=== PATIENT | female | born 1960 | race Caucasian/White ===

== ENCOUNTER 2025-04-21 17:53 | Emergency (ER) | payer BC ==
[~2025-04-21 17:53] MED LIST: Iopamidol 300 61% 100 ML VIAL FS ONE
[2025-04-21 19:01] LABS: #Basophils Less than 0.03 10x3/uL (0.0-0.2); #Eosinophils Less than 0.03 10x3/uL (0.0-0.5); #Monocytes 0.45 10x3/uL (0.0-1.1); #Neutrophils 5.16 10x3/uL (1.5-8.4); %Basophils 0.1 % (0.0-2.0); %Eosinophils 0.1 % (0.0-6.0); %Lymphocytes 25.8 % (18.0-47.0); %Monocytes 5.9 % (0.0-10.0); %Neutrophils 68.0 % (40.0-75.0); Hematocrit 41.4 % (34.9-44.5); Hemoglobin 13.9 g/dL (12.0-15.5); Mean Corpuscular Hemoglobin 30.4 pg (27.0-33.0); Mean Corpuscular Volume 90.6 fL (81.6-98.3); Platelet Count 300 10x3/uL (150-450); Red Blood Cell (RBC) Count 4.57 10x6/uL (3.90-5.03); White Blood Cell (WBC) Count 7.60 10x3/uL (3.5-10.5)
[2025-04-21 19:14] LABS: ALT (SGPT) 15 U/L (Less than 34); AST (SGOT) 27 U/L (11-34); Albumin 4.2 g/dL (3.1-4.5); Alkaline Phosphatase 73 U/L (40-110); Anion Gap 16 mmol/L (10-20); BUN (Urea Nitrogen) 13 mg/dL (9.8-20.1); Bilirubin, Total 0.5 mg/dL (0.3-1.2); Calc. Creatinine Clearance 0 mL/min (70-130); Calcium 9.2 mg/dL (7.8-10.44); Carbon Dioxide 23 mmol/L (23-31); Chloride 106 mmol/L (98-107); Globulin 3.3 g/dL (2.4-3.5); Glucose 110 mg/dL (80-115); Lipase 14 U/L (8-78); Potassium 3.6 mmol/L (3.5-5.1); Sodium 141 mmol/L (136-145)
[2025-04-21] MEDS ORDERED: Ondansetron PF 4 MG/2 ML Vial ONE (19:20)
[2025-04-21] MEDS ORDERED: Ketorolac Tromethamine 30 MG (1 mL) VIAL ONE (19:20)
[2025-04-21] MEDS ORDERED: Metoclopramide HCl 10 MG (2 mL) VIAL ONE (21:27)
[2025-04-21] MEDS ORDERED: Famotidine/PF 20 mg/2ml Vial ONE (21:27)
== END 2025-04-21 22:24 | disposition home or self-care (01) ==
LOC: CSHERS 17:53
DX: R11.2 Nausea with vomiting, unspecified (principal); R10.13 Epigastric pain
CPT/HCPCS: 74177; 80053; 83690; 85025; 96361; 96365; 96372; 96375; J1308; J1885; J2405; J2765; Q9967

== ENCOUNTER 2025-04-24 03:10 | Emergency (ER) | payer BC ==
[2025-04-24] MEDS ORDERED: Ketorolac Tromethamine 30 MG (1 mL) VIAL ONE (03:43)
[2025-04-24] MEDS ORDERED: Metoclopramide HCl 10 MG (2 mL) VIAL ONE (03:44)
[2025-04-24] MEDS ORDERED: Famotidine/PF 20 mg/2ml Vial ONE (03:44)
[2025-04-24 03:49] LABS: #Basophils Less than 0.03 10x3/uL (0.0-0.2); #Eosinophils Less than 0.03 10x3/uL (0.0-0.5); #Monocytes 0.56 10x3/uL (0.0-1.1); #Neutrophils 5.49 10x3/uL (1.5-8.4); %Basophils 0.3 % (0.0-2.0); %Eosinophils 0.1 % (0.0-6.0); %Lymphocytes 19.8 % (18.0-47.0); %Monocytes 7.4 % (0.0-10.0); %Neutrophils 72.1 % (40.0-75.0); Hematocrit 41.9 % (34.9-44.5); Hemoglobin 13.9 g/dL (12.0-15.5); Mean Corpuscular Hemoglobin 30.1 pg (27.0-33.0); Mean Corpuscular Volume 90.7 fL (81.6-98.3); Platelet Count 288 10x3/uL (150-450); Red Blood Cell (RBC) Count 4.62 10x6/uL (3.90-5.03); White Blood Cell (WBC) Count 7.61 10x3/uL (3.5-10.5)
[2025-04-24 04:00] LABS: Glucose, Urine (Dipstick) Normal (Negative); Leukocyte Negative (Negative); Protein, Urine (Dipstick) Negative (Neg-Trace); Specific Gravity, Urine 1.010 (1.005-1.030)
[2025-04-24 04:04] LABS: ALT (SGPT) 18 U/L (Less than 34); AST (SGOT) 23 U/L (11-34); Albumin 4.3 g/dL (3.1-4.5); Alkaline Phosphatase 73 U/L (40-110); Anion Gap 12 mmol/L (10-20); BUN (Urea Nitrogen) 11 mg/dL (9.8-20.1); Bilirubin, Total 0.5 mg/dL (0.3-1.2); Calc. Creatinine Clearance 0 mL/min (70-130); Calcium 8.9 mg/dL (7.8-10.44); Carbon Dioxide 24 mmol/L (23-31); Chloride 108 mmol/L (98-107); Globulin 2.8 g/dL (2.4-3.5); Glucose 114 mg/dL (80-115); Lipase 19 U/L (8-78); Magnesium 1.9 mg/dL (1.6-2.6); Potassium 3.4 mmol/L (3.5-5.1); Sodium 141 mmol/L (136-145)
[2025-04-24 04:09] LABS: Bacteria/HPF None Seen HPF (None Seen); CAUTI Indications for Culture Pelvic or flank pain; RBC/HPF None Seen HPF (0-3); Urine Culture Reflex No No; WBC/HPF None Seen HPF (0-3)
== END 2025-04-24 06:06 | disposition home or self-care (01) ==
LOC: CSHERS 03:10
DX: R10.84 Generalized abdominal pain (principal); R11.2 Nausea with vomiting, unspecified; K76.89 Other specified diseases of liver; N63.0 Unspecified lump in unspecified breast; E78.5 Hyperlipidemia, unspecified; Z79.899 Other long term (current) drug therapy
CPT/HCPCS: 74177; 80053; 81001; 83690; 83735; 85025; 93005; 96365; 96375; J1308; J1885; J2270; J2765

== ENCOUNTER 2025-04-25 15:25 | Inpatient (IN) | payer BC ==
[2025-04-25] MEDS ORDERED: Droperidol 5 MG/2 ML VIAL ONE ×2 (16:13→17:45)
[2025-04-25 16:52] LABS: ALT (SGPT) 16 U/L (Less than 34); AST (SGOT) 24 U/L (11-34); Albumin 4.2 g/dL (3.1-4.5); Alkaline Phosphatase 69 U/L (40-110); Anion Gap 13 mmol/L (10-20); BUN (Urea Nitrogen) 12 mg/dL (9.8-20.1); Bilirubin, Total 0.6 mg/dL (0.3-1.2); Calc. Creatinine Clearance 0 mL/min (70-130); Calcium 9.0 mg/dL (7.8-10.44); Carbon Dioxide 23 mmol/L (23-31); Chloride 106 mmol/L (98-107); Globulin 3.1 g/dL (2.4-3.5); Glucose 102 mg/dL (80-115); Lipase 13 U/L (8-78); Magnesium 1.9 mg/dL (1.6-2.6); Potassium 3.3 mmol/L (3.5-5.1); Sodium 139 mmol/L (136-145)
[2025-04-25 16:57] LABS: #Basophils Less than 0.03 10x3/uL (0.0-0.2); #Eosinophils Less than 0.03 10x3/uL (0.0-0.5); #Monocytes 0.57 10x3/uL (0.0-1.1); #Neutrophils 6.66 10x3/uL (1.5-8.4); %Basophils 0.2 % (0.0-2.0); %Eosinophils 0.0 % (0.0-6.0); %Lymphocytes 12.9 % (18.0-47.0); %Monocytes 6.8 % (0.0-10.0); %Neutrophils 79.7 % (40.0-75.0); Hematocrit 41.5 % (34.9-44.5); Hemoglobin 14.2 g/dL (12.0-15.5); Mean Corpuscular Hemoglobin 30.3 pg (27.0-33.0); Mean Corpuscular Volume 88.5 fL (81.6-98.3); Platelet Count 336 10x3/uL (150-450); Red Blood Cell (RBC) Count 4.69 10x6/uL (3.90-5.03); White Blood Cell (WBC) Count 8.36 10x3/uL (3.5-10.5)
[2025-04-25] MEDS ORDERED: Metoclopramide HCl 10 MG (2 mL) VIAL ONE (19:14)
[2025-04-25] MEDS ORDERED: Acetaminophen 325 MG TAB PO PRN (20:06)
[2025-04-25 21:45] VITALS: BMI 27.3
[2025-04-25 21:56] LABS: Glucose, Urine (Dipstick) Normal (Negative); Leukocyte 25 (Negative); Protein, Urine (Dipstick) Negative (Neg-Trace); Specific Gravity, Urine 1.010 (1.005-1.030)
[2025-04-25 22:05] LABS: Bacteria/HPF None Seen HPF (None Seen); RBC/HPF None Seen HPF (0-3); WBC/HPF 0-3 HPF (0-3)
[2025-04-25 22:27] LABS: Magnesium 1.7 mg/dL (1.6-2.6)
[2025-04-26] MEDS: Famotidine 20 MG TAB PO SCH ×2 (00:07→09:08)
[2025-04-26] MEDS: Metoclopramide HCl 10 MG (2 mL) VIAL IVP PRN (00:07)
[2025-04-26] MEDS: Fioricet 325/50/40 mg Tablet PO SCH (00:08)
[2025-04-26] MEDS: cefTRIAXone\\ROCEPHIN 1 GM in Sodium Chloride 0.9% 100 ML IVPB SCH (00:11)
[2025-04-26] MEDS: Potassium Chloride 20 MEQ in Premix 1 BAG IVPB SCH ×2 (00:12→10:20)
[2025-04-26] MEDS: Magnesium Sulfate/D5W 1 GM in Premix 1 BAG IVPB SCH (03:30)
[2025-04-26 05:18] LABS: #Basophils Less than 0.03 10x3/uL (0.0-0.2); #Eosinophils Less than 0.03 10x3/uL (0.0-0.5); #Monocytes 0.94 10x3/uL (0.0-1.1); #Neutrophils 4.72 10x3/uL (1.5-8.4); %Basophils 0.3 % (0.0-2.0); %Eosinophils 0.1 % (0.0-6.0); %Lymphocytes 26.2 % (18.0-47.0); %Monocytes 12.2 % (0.0-10.0); %Neutrophils 61.1 % (40.0-75.0); Hematocrit 37.9 % (34.9-44.5); Hemoglobin 12.6 g/dL (12.0-15.5); Mean Corpuscular Hemoglobin 29.8 pg (27.0-33.0); Mean Corpuscular Volume 89.6 fL (81.6-98.3); Platelet Count 276 10x3/uL (150-450); Red Blood Cell (RBC) Count 4.23 10x6/uL (3.90-5.03); White Blood Cell (WBC) Count 7.72 10x3/uL (3.5-10.5)
[2025-04-26 05:31] LABS: ALT (SGPT) 13 U/L (Less than 34); AST (SGOT) 19 U/L (11-34); Albumin 3.9 g/dL (3.1-4.5); Alkaline Phosphatase 61 U/L (40-110); Anion Gap 11 mmol/L (10-20); BUN (Urea Nitrogen) 6 mg/dL (9.8-20.1); Bilirubin, Total 0.5 mg/dL (0.3-1.2); Calc. Creatinine Clearance 124 mL/min (70-130); Calcium 8.2 mg/dL (7.8-10.44); Carbon Dioxide 22 mmol/L (23-31); Chloride 107 mmol/L (98-107); Globulin 2.7 g/dL (2.4-3.5); Glucose 91 mg/dL (80-115); Potassium 3.2 mmol/L (3.5-5.1); Sodium 137 mmol/L (136-145)
[2025-04-26] MEDS: Famotidine/PF 20 mg/2ml Vial SLOW IVP SCH (07:36)
[2025-04-26] MEDS: Enoxaparin 40 MG (0.4 mL) SYRINGE SC SCH (09:08)
[2025-04-27] MEDS: Ondansetron PF 4 MG/2 ML Vial IVP PRN (03:50)
[2025-04-27 04:42] LABS: #Basophils Less than 0.03 10x3/uL (0.0-0.2); #Eosinophils Less than 0.03 10x3/uL (0.0-0.5); #Monocytes 0.86 10x3/uL (0.0-1.1); #Neutrophils 4.34 10x3/uL (1.5-8.4); %Basophils 0.3 % (0.0-2.0); %Eosinophils 0.1 % (0.0-6.0); %Lymphocytes 23.6 % (18.0-47.0); %Monocytes 12.5 % (0.0-10.0); %Neutrophils 63.2 % (40.0-75.0); Hematocrit 40.0 % (34.9-44.5); Hemoglobin 13.5 g/dL (12.0-15.5); Mean Corpuscular Hemoglobin 29.9 pg (27.0-33.0); Mean Corpuscular Volume 88.7 fL (81.6-98.3); Platelet Count 293 10x3/uL (150-450); Red Blood Cell (RBC) Count 4.51 10x6/uL (3.90-5.03); White Blood Cell (WBC) Count 6.87 10x3/uL (3.5-10.5)
[2025-04-27 04:57] LABS: Anion Gap 12 mmol/L (10-20); BUN (Urea Nitrogen) 5 mg/dL (9.8-20.1); Calc. Creatinine Clearance 124 mL/min (70-130); Calcium 9.0 mg/dL (7.8-10.44); Carbon Dioxide 23 mmol/L (23-31); Chloride 105 mmol/L (98-107); Glucose 101 mg/dL (80-115); Potassium 3.4 mmol/L (3.5-5.1); Sodium 137 mmol/L (136-145)
[2025-04-27 08:50] VITALS: BP 165/79; TEMP 98.4
== END 2025-04-27 11:54 | disposition home or self-care (01) | DRG 392 ==
LOC: CSHERS 15:25 → CSHTELE 20:06
PROVIDERS: ADMIT Internal Medicine; ATTEND Family Medicine
DX: K31.84 Gastroparesis (principal); E78.00 Pure hypercholesterolemia, unspecified; Z90.49 Acquired absence of other specified parts of digestive tract; Z79.899 Other long term (current) drug therapy
CPT/HCPCS: 36415; 74177; 80048; 80053; 81001; 83605; 83690; 83735; 84100; 85025; 93005; 96365; 96374; 96375; 96376; J0696; J1650; J1790; J1885; J2765; J3475; J3480; Q9967

== ENCOUNTER 2025-05-02 13:34 | Outpatient (CLI) | payer BC | END 2025-05-02 13:35 | disposition home or self-care (01) | LOC: CSHMAMMO 13:34 | PROVIDERS: ATTEND Student in an Organized Health Care Education/Training Program | DX: N63.10 Unspecified lump in the right breast, unspecified quadrant (principal) | CPT/HCPCS: G0279 ==